=== PATIENT | male | born 1970 | race Caucasian/White ===

== ENCOUNTER 2016-12-17 14:43 | Emergency (ER) | payer OTHER ==
--- NOTE | 2016-12-17 15:52 | EDPHY ---
HPI/HX/ROS/PE/MDM Narrative: Chief complaint: Right 5th finger pain HPI: [place] ice, landing on an outstretched right hand. Patient states he felt the finger got caught under the eyes and the dislocated it. Denies any other injuries. Did not hit his head. No loss of consciousness. No prior injuries to that hand. He is right-handed. ROS: 10 point review of systems is negative except as noted in HPI Gen: Awake, Alert, No Distress Ext: he is an obvious deformity at the right little finger PIP joint with dislocation of the ulnar deviation. Sensations intact distally. Cap refills less than 3 seconds. Skin: no rash Neuro: CN II-XII intact, Sensation grossly intact, Strength 5/5 in bilateral upper and lower extremities ED Course: I have given the patient the option of a digital nerve block versus just a rapid reduction in the dislocation. He is opting to have it just simply reduced. I reduced the dislocation with traction counter traction. X-ray was obtained following the reduction. Postreduction x-ray shows no evidence of fracture. Patient was placed in aluminum foam splint. He has been instructed to follow up with a hand surgeon Back: [place] when he returns early next week. General Time Seen by Provider: 12/17/16 15:43 Initial Vital Signs: Initial Vital Signs Temperature (C) 36.2 C 12/17/16 14:59 Heart Rate 76 12/17/16 14:59 Respiratory Rate 16 12/17/16 14:59 Blood Pressure 115/86 H 12/17/16 14:59 O2 Sat (%) 92 12/17/16 14:59 O2 Delivery Mode Room Air Allergies/Adverse Reactions: Penicillins Allergy (Verified 12/17/16 14:58) Home Medications: Medication Instructions Recorded Claritin 12/17/16 Departure - Departure Disposition: Home, Routine, Self-Care Clinical Impression: Finger dislocation Condition: Good Instructions: Finger Dislocation (ED) Additional Instructions: Follow up with a hand surgeon when you return home. May take ibuprofen and acetaminophen as needed for pain. Leave the splint in place until seen by the hand surgeon. May apply ice for 15 minutes for every hour while awake. Referrals: OUT OF STATE,. [Primary Care Provider] - As per Instructions
--- NOTE | 2016-12-17 16:29 | DX ---
Right Fifth Finger Clinical Indications: Post reduction Comparison: None Findings: Bones are intact without fracture or dislocation. Mineralization is normal. Impression: Normal. No residual dislocation or malalignment identified on this exam.
[2016-12-17 18:07] VITALS: BP 118/78; PULSE 70; RESP 15; TEMP 98.8; O2SAT 95
== END 2016-12-17 18:06 | disposition home or self-care (01) ==
PROC: 0RSWXZZ Reposition Right Finger Phalangeal Joint, External Approach (ICD-10-PCS; principal; 2016-12-17)
DX: S63.286A Dislocation of proximal interphalangeal joint of right little finger, initial encounter (principal); W00.0XXA Fall on same level due to ice and snow, initial encounter; Y92.89 Other specified places as the place of occurrence of the external cause; Y93.01 Activity, walking, marching and hiking
CPT/HCPCS: L3925